=== PATIENT | female | born 1940 | race Two or more races ===

== ENCOUNTER → 2023-12-21 | Outpatient (CLI) | payer MEDICARE, BC, SELFPAY ==
[2023-12-21 10:43] LABS: Basophils % (Auto) 0 % (0-2.5); Eosinophils # (Auto) 0.1 Thou/mm3 (0.0-0.5); Eosinophils % (Auto) 2 % (0-10); Hematocrit 40.5 % (36.0-46.0); Hemoglobin 13.4 g/dL (12.0-16.0); Immature Granulocytes % (Auto) 0 % (0-0); Immature Granulocytes Auto 0.02 Thou/mm3 (0.00-0.00); Lymphocytes # (Auto) 1.9 Thou/mm3 (1.0-4.8); Lymphocytes % (Auto) 29 % (10-50); Mean Corpuscular HGB Conc 33.1 g/dl (31.0-37.0); Mean Corpuscular Hemoglobin 29.3 pg (25.0-35.0); Mean Corpuscular Volume 88 fL (80-100); Monocytes # (Auto) 0.5 Thou/mm3 (0.0-0.8); Monocytes % (Auto) 7 % (0-12); Neutrophils # (Auto) 4.1 Thou/mm3 (1.8-7.7); Neutrophils % (Auto) 62 % (37-80); Nucleated Red Blood Cell % 0 /100 WBC (0); Platelet Count 196 Thou/mm3 (140-440); RDW Standard Deviation 42.6 fL (36.4-46.3); Red Blood Count 4.58 Miln/mm3 (4.00-5.20); White Blood Count 6.6 Thou/mm3 (3.6-11.0)
[2023-12-21 10:57] LABS: Glucose Estimated Average 105 mg/dL (80-131); Hemoglobin A1C 5.3 % Hgb (4.8-6.0)
[2023-12-21 11:11] LABS: Alanine Aminotransferase 11 U/L (10-49); Albumin, Serum 4.5 gm/dL (3.4-4.8); Alkaline Phosphatase 78 U/L (46-116); Anion Gap 2 (7-16); Aspartate Amino Transferase 16 U/L (0-34); BUN/Creatinine Ratio 23 Ratio (12-20); Bilirubin,Total 0.6 mg/dL (0.3-1.2); Blood Urea Nitrogen 18 mg/dL (9-23); Calcium 9.2 mg/dL (8.3-10.6); Calcium (Corrected) 9.2 mg/dL (8.5-10.1); Carbon Dioxide 30.9 mMol/L (20.0-31.0); Cardiac Risk Estimate 2.5 RATIO (3.7-5.6); Chloride 104 mMol/L (98-107); Cholesterol 204 mg/dL (132-200); Creatinine (Component) 0.8 mg/dL (0.6-1.3); Free T4 (Free Thyroxine) 1.46 ng/dL (0.89-1.76); Globulin 2.3 gm/dL (2.3-3.5); Glucose 103 mg/dL (74-106); HDL Cholesterol 82 mg/dL (40-60); LDL Cholesterol,Calculated 109 mg/dL (0-130); Osmolality,Calculated 275 (275-295); Potassium 4.4 mMol/L (3.4-5.1); Sodium 137 mMol/L (136-145); Thyroid Stimulating Hormone 0.84 uIU/mL (0.55-4.78); Total Protein 6.8 gm/dL (5.7-8.2); Triglycerides 66 mg/dL (30-150); Vitamin B12 431 pg/mL (211-911); Vitamin D 25 Hydroxy Total 32.4 ng/mL (7.3-40.2); eGFR > 60 See Note
== END | disposition home or self-care (01) ==
PROVIDERS: PCP Internal Medicine; Referring Provider Internal Medicine; Visit Provider Internal Medicine
DX: M19.90 Unspecified osteoarthritis, unspecified site (principal); E11.9 Type 2 diabetes mellitus without complications; E55.9 Vitamin D deficiency, unspecified; E78.2 Mixed hyperlipidemia; E03.9 Hypothyroidism, unspecified
CPT/HCPCS: 36415; 80053; 80061; 82306; 82607; 83036; 84439; 84443; 85025

== ENCOUNTER 2024-09-12 10:50 | Emergency (ER) | payer MEDICARE, BC, SELFPAY ==
[2024-09-12 10:52] VITALS: BMI 31.1
[2024-09-12 11:01] VITALS: BP 166/97; PULSE 67; RESP 19; TEMP 36.5; O2SAT 95; BMI 31.1
--- NOTE | 2024-09-12 11:12 | XR_ITS ---
Examination: Knee, right, 3 views Technique: Knee AP, lateral, oblique 3 views Date and time of exam: September 12, 2024 1127 hours INDICATIONS: Patient fell today with into the knee, knee pain. FINDINGS: No acute fracture Moderate tricompartment osteoarthritis Small knee effusion IMPRESSION: No acute fracture
--- NOTE | 2024-09-12 11:12 | XR_ITS ---
Examination: Shoulder,right, 3 views Technique: Shoulder AP internal rotation, AP external rotation, Y view shoulder, 3 views Exam date and time :September 12, 2024 1127 hours INDICATIONS: Patient fell today with into the shoulder, shoulder pain. FINDINGS: Moderate narrowing glenohumeral joint No shoulder fracture or dislocation IMPRESSION: No shoulder fracture or dislocation
--- NOTE | 2024-09-12 11:12 | XR_ITS ---
Examination: CT cervical spine without contrast 2-D sagittal reconstructions 2-D coronal reconstructions 3-D reconstructions. Exam date and time:September 12, 2024 1209 hours INDICATIONS: Patient fell today with injury to the neck, neck pain CTDI:vol (mGy) 16.4 DLP: (mGycm) 362 Technique: Multiple 2 mm axial sections of the cervical spine have been obtained. The coronal and sagittal reconstructions have been obtained. 3-D reconstructions have been obtained. Low dose protocols were performed. One or more of the following dose reduction techniques were used; automated exposure control, adjustment of the mA and/or KV according to patient size, use of iterative reconstruction technique. Findings: Axial sections demonstrate intact base of the skull. C1 exhibit satisfactory relationship to the odontoid. No acute cervical vertebral body fracture seen. Alignment posterior spinous processes satisfactory. Impression: No acute cervical fracture.
--- NOTE | 2024-09-12 11:12 | XR_ITS ---
Examination: PA chest single view TECHNIQUE: Upright PA chest single view Date and time: September 12, 2024 1127 hours, comparison July 08, 2022 INDICATIONS: Patient fell today with injury of the chest, chest pain FINDINGS: Stable scarring right upper lobe No pneumothorax Normal heart size Clavicles ribs appear intact IMPRESSION: No pneumothorax pulmonary contusion or hemothorax
--- NOTE | 2024-09-12 11:12 | XR_ITS ---
Examination: CT brain head without contrast. 2-D sagittal coronal reconstructions Date and time of exam:September 13, 1999 2512 noon Comparison July 09, 2022 INDICATIONS: Ground-level fall today with injury to the back of the head, patient is anticoagulated CTDI: vol (mGy):44.8 DLP: (mGycm):890 Technique: Multiple CT axial sections of the brain have been obtained, 5 mm slice thickness. Contrast has not been administered. 2-D sagittal, coronal reconstructions have been obtained Low dose protocols were performed. One or more of the following dose reduction techniques were used; automated exposure control, adjustment of the mA and/or KV according to patient size, use of iterative reconstruction technique. Findings: No significant ventricular enlargement. Intra-axial or extra-axial hemorrhage density is not seen. No mass effect or midline shift Basal cisterns are not remarkable. Fourth ventricle is midline. Cranial vault intact. Postsurgical changes right mastoid air cells Impression: Negative for acute hemorrhage, mass effect or midline shift
--- NOTE | 2024-09-12 11:13 | PD.EDRME ---
Rapid Medical Screening Exam [facility] Arrival date/time: 09/12/24 10:50 CC: Right shoulder pain right knee pain HPI fault 2 days ago, ground-level, on Plavix, care provider states the patient is continue to lay around not doing anything yesterday, except continued to complain of pain in the sites listed. Patient is awake alert oriented x 2. Chief Complaint: Fall Vital signs: Vital Signs Temperature 97.7 F 09/12/24 11:01 Pulse Rate 67 09/12/24 11:01 Respiratory Rate 19 09/12/24 11:01 Blood Pressure 166/97 H 09/12/24 11:01 Pulse Oximetry (%) 95 09/12/24 11:01 Oxygen Delivery Method Room Air 09/12/24 11:01
--- NOTE | 2024-09-12 12:40 | EDNOTE_ITS ---
ED Fall Injury RME/HPI General Chief Complaint: Fall Stated Complaint: S/P FALL X2 DAYS R SHOULDER/KNEE PAIN/ALEGRIA Time Seen by Provider: 09/12/24 11:51 Arrival date/time: 09/12/24 10:50 RME / HPI RME / HPI Narrative: 84-year-old female patient currently taking Plavix came in for evaluation regarding ground-level fall. Patient sustained trip and fall 2 days ago now complaining of right shoulder pain right knee pain, described as dull ache, severity moderate. Patient also complained of headache but according to the family patient has been suffering from chronic headache. Denies any neck pain denies any chest pain denies any other complaints no medication was taken prior to arrival. Related Data Home Medications ?Medication ?Instructions ?Recorded ?Confirmed levothyroxine 75 mcg capsule 75 mcg PO QDAY 09/11/17 0 07/08/22 [id number] 250 2 tab PO BIDPRN PRN Migraine 08/27/18 07/08/22 mg-250 mg-65 mg tablet (Excedrin Headache Extra Strength) Held on 07/12/22. Instructions: Reconcile with neurology if still required for migraines diphenhydramine HCl 25 mg tablet 25 mg PO QID PRN Martin rgy Symptoms 11/12/18 07/08/22 (Benadryl Allergy) loratadine 10 mg tablet (Claritin) 10 mg PO QDAY 11/1207/08/22 Previous Rx's ?Medication ?Instructions ?Recorded apixaban 2.5 mg tablet (Eliquis) 5 mg (2 x 2.5 mg) PO BID 30 days 07/12/22 #120 tabs guaifenesin 100 mg/5 mL oral 200 mg (10 mL) PO Q4H PRN cough 07/12/22 liquid (Expectorant) #473 mL Allergies Allergy/AdvReac Type Severity Reaction Status Date / Time codeine Allergy Severe VERY LIGHT Verified 09/12/24 10:52 HEADED Review of Systems Review of Systems Narrative Review of Systems: Review of system reviewed and within normal limits except mentioned in HPI ED Exam Narrative Physical exam: VITAL SIGNS: Reviewed. GENERAL APPEARANCE: Alert and interactive, follows commands, no acute distress, HEAD AND FACE: Non-traumatic. ENT: PERRL, pink conjunctivitis, eyelid no trauma, Mucous membrane moist. NECK: Supple, nontender, no nuchal rigidity. CHEST: No tenderness, no crepitus, no paradoxical movement, no retractions. LUNGS: Clear, well ventilated, symmetric, no rales, no wheezing, no ronchi, no stridor, good breath sounds bilaterally. HEART: Regular rate, regular rhythm, no murmur, no gallops. ABDOMEN: Soft, positive bowel sounds, nondistended, no guarding, nontender, no rebound, no masses, RECTAL: Deferred. GENITAL: Deferred. NEUROLOGICAL: Gross motor function intact sensory function intact, Appropriate for age. MUSCULOSKELETAL: low back nontender, full range of motion. EXTREMITIES: Right anterior shoulder tenderness, no deformity, full range of motion. Right anterior knee abrasion, with bruising, no deformity full range of motion of the knee, distal neurovascular status intact. SKIN: Color pink, dry, no rash, no lacerations, no abrasions, no contusions. LYMPHATICS: Deferred. Course Quality Measures none Orders Category Date Time Status sling [Splint / Immobilizer] STAT Care 09/12/24 12:[address] cervical spine wo con Stat Exams 09/12/24 11:[address] head/brain wo con Stat Exams 09/12/24 11:12 Completed XR chest 1V Stat Exams 09/12/24 11:12 Completed XR knee RT 3V Stat Exams 09/12/24 11:12 Completed XR shoulder RT min 2V Stat Exams 09/12/24 11:12 Completed CBC Stat Lab 09/12/24 12:25 Completed CMP [Comprehensive Metabolic Panel] Stat Lab 09/12/24 12:25 Completed PT [Prothrombin Time with INR] Stat Lab 09/12/24 12:25 Completed PTT [Partial Thromboplastin Time] Stat Lab 09/12/24 12:25 Completed Acetaminophen Tab [Tylenol ES Tab] Med 09/12/24 12:46 Discontinued 1,000 mg PO X1 ONE Vital Signs Vital signs: Vital Signs Temperature 97.7 F 09/12/24 11:01 Pulse Rate 67 09/12/24 11:01 Respiratory Rate 19 09/12/24 11:01 Blood Pressure 166/97 H 09/12/24 11:01 Pulse Oximetry (%) 95 09/12/24 11:01 Oxygen Delivery Method Room Air 09/12/24 11:01 Fall MDM Narrative MDM Narrative:: 84-year-old female patient currently taking Plavix came in for evaluation regarding ground-level fall. Patient sustained trip and fall 2 days ago now complaining of right shoulder pain right knee pain, described as dull ache, severity moderate. Patient also complained of headache but according to the family patient has been suffering from chronic headache. Denies any neck pain denies any chest pain denies any other complaints no medication was taken prior to arrival.. Patient's workup came back normal CT scan of the head came back unremarkable CT scan of the cervical spine came back unremarkable x-ray of the chest, knee, shoulder all came back normal. Patient stable for discharge home. Patient data External records reviewed:: None Clinical information provided by:: patient Social determinants that could affect healthcare access:: none Patient has the following chronic illnesses:: Chronic A-fib How is presenting disease/condition affected by chronic disease/condition?: exacerbated by Evaluation data The following diagnostics were reviewed and interpreted by me:: lab results and radiology exam(s) Lab and/or radiology exams considered but not ordered:: None Interpretation Summary: See results MDM Medications / Prescriptions Medications or Prescriptions considered but not ordered:: None Medication administrations:: Medication Administration History Discontinued Medications Acetaminophen (Acetaminophen 500 Mg Tablet) 1,000 mg PO X1 ONE Stop: 09/12/24 12:47 Last Admin: 09/12/24 12:53 Dose: 1,000 mg Documented By: LATASHA Tylenol Consultations Consultation(s) initiated? (list below): No Diagnosis Fall Differential Diagnosis: other (Fall, shoulder pain, intracranial bleed) Most likely diagnosis given after review of the tests above:: Fall, shoulder pain intracranial bleed Admission Indicated Admission indicated?: not indicated Admission Request Was there a request for admission?: No Disposition Plan Disposition Plan: Discharge Discharge Attestation Discharge Attestation: The patient and all family members were given an opportunity to ask questions and understood the discharge instructions. Discharge instructions specifically effects, indications for sooner follow up or return to the emergency department, and the expected course of current diagnosis. Patient condition: Stable Discharge Plan Plan Patient Disposition: HOME (Self Care) Discharge Disposition comment: stable Prescriptions/Referrals Prescriptions/Med Rec: No Action levothyroxine 75 mcg capsule 75 mcg PO QDAY Excedrin Extra Strength 250-250-65 mg Tablet 2 tab PO BIDPRN PRN (Reason: Migraine Headache) Rx Instructions: 2 mg orally diphenhydramine HCl [Benadryl Allergy] 25 mg Tablet 25 mg PO QID PRN (Reason: Allergy Symptoms) loratadine [Claritin] 10 mg Tablet 10 mg PO QDAY Eliquis 2.5 mg Tablet 5 mg PO BID 30 Days Qty: 120 1RF guaifenesin [Expectorant] 100 mg/5 mL liquid 200 mg PO Q4H PRN (Reason: cough) Qty: 473 0RF Referrals: Torin Maynard MD [Primary Care Provider] - In 1 week Problem List Clinical Impression: Acute pain of right shoulder, Fall, Contusion of knee Patient/Caregiver Discharge Instructions Discharge Activity: activity as tolerated Education Materials: ED Shoulder Pain, Uncertain Cause Additional Instructions: Thank you for the opportunity for serving you today. You are stable for discharged . You are advised to: Follow-up with your PCP in 1 to 2 days Return to ED for worsening of symptoms Increase oral fluids Take [id number] Tylenol or Motrin as needed for pain Wear your arm sling as needed Print Language: Welsh Stand Alone Forms: Nery Award Info., Patient Portal Info Letter TANIA/DERREK Supervising Physician TANIA/DERREK Supervising Physician: MD Deana
[2024-09-12 12:49] LABS: Basophils # (Auto) 0.0 Thou/mm3 (0.0-0.2); Basophils % (Auto) 0 % (0-2.5); Eosinophils # (Auto) 0.1 Thou/mm3 (0.0-0.5); Eosinophils % (Auto) 2 % (0-10); Hematocrit 43.3 % (36.0-46.0); Hemoglobin 14.2 g/dL (12.0-16.0); Immature Granulocytes Auto 0.02 Thou/mm3 (0.00-0.00); Lymphocytes # (Auto) 1.8 Thou/mm3 (1.0-4.8); Lymphocytes % (Auto) 25 % (10-50); Mean Corpuscular HGB Conc 32.8 g/dl (31.0-37.0); Mean Corpuscular Hemoglobin 29.0 pg (25.0-35.0); Mean Corpuscular Volume 89 fL (80-100); Monocytes # (Auto) 0.5 Thou/mm3 (0.0-0.8); Monocytes % (Auto) 7 % (0-12); Neutrophils # (Auto) 4.8 Thou/mm3 (1.8-7.7); Neutrophils % (Auto) 65 % (37-80); Nucleated Red Blood Cell # 0.00 Thou/mm3 (0.00-0.00); Nucleated Red Blood Cell % 0 /100 WBC (0); Platelet Count 206 Thou/mm3 (140-440); RDW Standard Deviation 44.0 fL (36.4-46.3); Red Blood Count 4.89 Miln/mm3 (4.00-5.20); White Blood Count 7.3 Thou/mm3 (3.6-11.0)
[2024-09-12] MEDS: ACETAMINOPHEN 500 MG TABLET 1000 MG PO (12:53)
[2024-09-12 13:04] LABS: INR 1.0 (0.9-1.3); Partial Thromboplastin Time 26.3 Seconds (22.0-36.0); Prothrombin Time 11.2 Seconds (9.0-12.2)
[2024-09-12 13:11] LABS: Alanine Aminotransferase 13 U/L (10-49); Albumin, Serum 4.7 gm/dL (3.4-4.8); Albumin/Globulin Ratio 1.8 (1.2-2.2); Alkaline Phosphatase 60 U/L (46-116); Anion Gap 10 (7-16); Aspartate Amino Transferase 21 U/L (0-34); BUN/Creatinine Ratio 19 Ratio (12-20); Bilirubin,Total 1.0 mg/dL (0.3-1.2); Blood Urea Nitrogen 17 mg/dL (9-23); Calcium 9.5 mg/dL (8.3-10.6); Calcium (Corrected) 9.5 mg/dL (8.5-10.1); Carbon Dioxide 27.6 mMol/L (20.0-31.0); Chloride 104 mMol/L (98-107); Creatinine (Component) 0.9 mg/dL (0.6-1.3); Estimated Creatinine Clearance 34.9 mL/min (>60); Globulin 2.6 gm/dL (2.3-3.5); Glucose 102 mg/dL (74-106); Osmolality,Calculated 284 (275-295); Potassium 3.7 mMol/L (3.4-5.1); Sodium 142 mMol/L (136-145); Total Protein 7.3 gm/dL (5.7-8.2); eGFR > 60 See Note
[2024-09-12 13:39] VITALS: BP 160/79; PULSE 55; RESP 20; TEMP 36.3; O2SAT 96
== END 2024-09-12 14:09 | disposition home or self-care (01) ==
PROVIDERS: Registered Nurse General Practice; Emergency Provider Family Medicine; PCP Internal Medicine
DX: S80.00XA Contusion of unspecified knee, initial encounter (principal); S29.9XXA Unspecified injury of thorax, initial encounter; S19.9XXA Unspecified injury of neck, initial encounter; S09.90XA Unspecified injury of head, initial encounter; M25.511 Pain in right shoulder; W01.0XXA Fall on same level from slipping, tripping and stumbling without subsequent striking against object, initial encounter
CPT/HCPCS: 36415; 70450; 71045; 72125; 73030; 73562; 80053; 85025; 85610; 85730; 99283; A9270

== ENCOUNTER → 2024-12-16 | Outpatient (CLI) | payer MEDICARE, BC, SELFPAY ==
[2024-12-16 10:42] LABS: Basophils # (Auto) 0.0 Thou/mm3 (0.0-0.2); Basophils % (Auto) 0 % (0-2.5); Eosinophils # (Auto) 0.1 Thou/mm3 (0.0-0.5); Eosinophils % (Auto) 1 % (0-10); Hematocrit 41.2 % (36.0-46.0); Hemoglobin 13.8 g/dL (12.0-16.0); Immature Granulocytes Auto 0.03 Thou/mm3 (0.00-0.00); Lymphocytes # (Auto) 1.7 Thou/mm3 (1.0-4.8); Lymphocytes % (Auto) 23 % (10-50); Mean Corpuscular HGB Conc 33.5 g/dl (31.0-37.0); Mean Corpuscular Hemoglobin 29.3 pg (25.0-35.0); Mean Corpuscular Volume 88 fL (80-100); Monocytes # (Auto) 0.5 Thou/mm3 (0.0-0.8); Monocytes % (Auto) 7 % (0-12); Neutrophils # (Auto) 5.0 Thou/mm3 (1.8-7.7); Neutrophils % (Auto) 69 % (37-80); Nucleated Red Blood Cell # 0.00 Thou/mm3 (0.00-0.00); Nucleated Red Blood Cell % 0 /100 WBC (0); Platelet Count 218 Thou/mm3 (140-440); RDW Standard Deviation 42.7 fL (36.4-46.3); Red Blood Count 4.71 Miln/mm3 (4.00-5.20); White Blood Count 7.3 Thou/mm3 (3.6-11.0)
[2024-12-16 10:58] LABS: Vitamin D 25 Hydroxy Total 31.9 ng/mL (7.3-40.2)
[2024-12-16 11:17] LABS: Alanine Aminotransferase 8 U/L (10-49); Albumin, Serum 4.7 gm/dL (3.4-4.8); Albumin/Globulin Ratio 2.0 (1.2-2.2); Alkaline Phosphatase 54 U/L (46-116); Anion Gap 9 (7-16); Aspartate Amino Transferase 20 U/L (0-34); BUN/Creatinine Ratio 14 Ratio (12-20); Bilirubin,Total 0.7 mg/dL (0.3-1.2); Blood Urea Nitrogen 13 mg/dL (9-23); Calcium 9.7 mg/dL (8.3-10.6); Calcium (Corrected) 9.7 mg/dL (8.5-10.1); Carbon Dioxide 27.0 mMol/L (20.0-31.0); Chloride 104 mMol/L (98-107); Creatinine (Component) 0.9 mg/dL (0.6-1.3); Free T4 (Free Thyroxine) 1.83 ng/dL (0.89-1.76); Globulin 2.3 gm/dL (2.3-3.5); Glucose 98 mg/dL (74-106); Osmolality,Calculated 279 (275-295); Potassium 3.8 mMol/L (3.4-5.1); Sodium 140 mMol/L (136-145); Thyroid Stimulating Hormone 0.90 uIU/mL (0.55-4.78); Total Protein 7.0 gm/dL (5.7-8.2); eGFR > 60 See Note
[2024-12-16 12:33] LABS: Glucose Estimated Average 108 mg/dL (80-131); Hemoglobin A1C 5.4 % Hgb (4.8-6.0)
[2024-12-16 12:35] LABS: Cardiac Risk Estimate 2.5 RATIO (3.7-5.6); Cholesterol 200 mg/dL (132-200); HDL Cholesterol 80 mg/dL (40-60); LDL Cholesterol,Calculated 103 mg/dL (0-130); Triglycerides 85 mg/dL (30-150)
== END | disposition home or self-care (01) ==
LOC: COPL 09:45
PROVIDERS: PCP Internal Medicine; Referring Provider Internal Medicine; Visit Provider Internal Medicine
DX: M19.90 Unspecified osteoarthritis, unspecified site (principal); E11.9 Type 2 diabetes mellitus without complications; E55.9 Vitamin D deficiency, unspecified; E78.2 Mixed hyperlipidemia; E03.9 Hypothyroidism, unspecified
CPT/HCPCS: 36415; 80053; 80061; 82306; 83036; 84439; 84443; 85025